=== PATIENT | female | born 1995 | race African-American/Black ===

== ENCOUNTER 2019-01-07 14:44 | Emergency (ER) | payer SELFPAY ==
[~2019-01-07] VITALS: Ht 144.8 cm; Wt 45.5 kg
[2019-01-07 15:09] VITALS: BP 107/59
[2019-01-07] MEDS ORDERED: ALBU8HFA IH (15:15)
== END 2019-01-07 17:07 | disposition left against medical advice (07) ==
LOC: EMS 14:46
DX: T78.40XA Allergy, unspecified, initial encounter (principal); Z53.21 Procedure and treatment not carried out due to patient leaving prior to being seen by health care provider

== ENCOUNTER 2019-01-08 12:12 | Emergency (ER) | payer SELFPAY ==
[~2019-01-08] VITALS: Ht 144.8 cm; Wt 45.5 kg
[~2019-01-08 12:12] MED LIST: ALBU8HFA IH
[2019-01-08] MEDS ORDERED: CefTRIAXone SODIUM 1 GM/VIAL IM ONE (14:15)
[2019-01-08] MEDS ORDERED: AZITHROMYCIN 250 MG TABLET PO ONE (14:15)
[2019-01-08] MEDS ORDERED: LIDOCAINE/PF 1% 2 ML VIAL IM ONE (14:15)
[2019-01-08 15:20] VITALS: BP 104/71
== END 2019-01-08 15:39 | disposition home or self-care (01) ==
LOC: EMS 12:13
DX: J45.909 Unspecified asthma, uncomplicated (principal); Z20.2 Contact with and (suspected) exposure to infections with a predominantly sexual mode of transmission; Z91.018 Allergy to other foods
CPT/HCPCS: 87491; 87591; 96372; 99283; J0696; J3490

== ENCOUNTER 2019-08-19 04:13 | Emergency (ER) | payer SELFPAY ==
[~2019-08-19] VITALS: Ht 144.8 cm; Wt 47.7 kg
[2019-08-19] MEDS ORDERED: ACETAMINOPHEN 500 MG TABLET PO ONE (05:00)
[2019-08-19] MEDS ORDERED: IBUPROFEN 600 MG TABLET PO ONE (05:00)
[2019-08-19 06:34] VITALS: BP 124/75
== END 2019-08-19 07:17 | disposition home or self-care (01) ==
LOC: EMS 04:13
DX: O9A.211 Injury, poisoning and certain other consequences of external causes complicating pregnancy, first trimester (principal); O99.511 Diseases of the respiratory system complicating pregnancy, first trimester; O26.891 Other specified pregnancy related conditions, first trimester; S13.4XXA Sprain of ligaments of cervical spine, initial encounter; S00.531A Contusion of lip, initial encounter; Z91.018 Allergy to other foods; Y08.89XA Assault by other specified means, initial encounter; Y93.89 Activity, other specified; Y92.89 Other specified places as the place of occurrence of the external cause; Y99.8 Other external cause status
CPT/HCPCS: 72040

== ENCOUNTER 2019-09-05 22:58 | Emergency (ER) | payer SELFPAY ==
[~2019-09-05] VITALS: Ht 144.8 cm; Wt 47.7 kg
[2019-09-05 23:46] LABS: BASOPHILS % (AUTO) 0.8 % (0.0-2.0); EOSINOPHILS % (AUTO) 2.5 % (1.0-6.0); HEMATOCRIT 35.9 % (36-46); HEMOGLOBIN 11.9 g/dL (12.0-16.0); LYMPHOCYTES # (AUTO) 2.1 K/uL (1.0-4.8); LYMPHOCYTES % (AUTO) 30.2 % (22.0-44.0); MEAN CORPUSCULAR HEMOGLOBIN 29.9 pg (26.0-34.0); MEAN CORPUSCULAR HGB CONC 33.1 G/dL (31.0-37.0); MEAN CORPUSCULAR VOLUME 90 fL (80-100); MONOCYTES # (AUTO) 0.3 K/uL (0.1-1.0); MONOCYTES % (AUTO) 4.8 % (2.0-9.0); NEUTROPHILS # (AUTO) 4.3 K/uL (1.8-7.7); NEUTROPHILS % (AUTO) 61.7 % (40.0-70.0); PLATELET COUNT (AUTO) 191 K/uL (150-450); RED BLOOD CELL COUNT(AUTO) 3.98 MIL/uL (4.00-5.20); RED CELL DISTRIBUTION WIDTH 14.7 % (11.5-14.5)
[2019-09-05 23:51] LABS: APPEARANCE,URINE CLOUDY (CLEAR); BILIRUBIN,URINE NEGATIVE (NEGATIVE); GLUCOSE, URINE (UA) NEGATIVE (NEGATIVE); KETONES,URINE NEGATIVE (NEGATIVE); LEUKOCYTE ESTERASE ,URINE SMALL (NEGATIVE); NITRATE,URINE NEGATIVE (NEGATIVE); OCCULT BLOOD,URINE LARGE (NEGATIVE); PROTEIN,URINE NEGATIVE (NEGATIVE)
[2019-09-06 00:01] LABS: AMORPHOUS SEDIMENT,UR Moderate /LPF (None Seen); BACTERIA,URINE Few /HPF (None Seen); SQUAMOUS EPITHELIAL CELL,UR Moderate /LPF (None Seen)
[2019-09-06 00:23] LABS: ANION GAP 12 mmol/L (8-16); CALCIUM, TOTAL 8.7 mg/dL (8.8-10.5); CARBON DIOXIDE 24 mmol/L (22-29); CHLORIDE 101 mmol/L (98-107); CREATININE 0.69 mg/dL (0.60-1.30); GLOMERULAR FILTR. RATE CALC > 60 mL/min (>60); GLUCOSE,RANDOM 88 mg/dL (70-110); POTASSIUM 3.5 mmol/L (3.5-5.1); SODIUM SERUM 137 mmol/L (136-145); UREA NITROGEN, BLOOD 14 mg/dL (7-18)
[2019-09-06 00:48] LABS: ALANINE AMINOTRANSFERASE 15 U/L (12-78); ALBUMIN 3.4 g/dL (3.4-5.0); ALKALINE PHOSPHATASE 41 U/L (46-116); ASPARTATE AMINOTRANSFERASE 14 U/L (15-37); BILIRUBIN,TOTAL 0.8 mg/dL (0.1-1.0); TOTAL PROTEIN, SERUM 7.3 g/dL (6.4-8.2)
[2019-09-06 01:28] LABS: HCG,QUANTITATIVE 127664 mIU/mL (0-6)
[2019-09-06 02:05] VITALS: BP 102/67
== END 2019-09-06 02:15 | disposition home or self-care (01) ==
LOC: EMS 22:59
DX: O20.0 Threatened abortion (principal); O30.001 Twin pregnancy, unspecified number of placenta and unspecified number of amniotic sacs, first trimester; J45.909 Unspecified asthma, uncomplicated; Z3A.01 Less than 8 weeks gestation of pregnancy; Z91.018 Allergy to other foods
CPT/HCPCS: 76817; 86850; 86900; 86901

== ENCOUNTER 2019-10-24 10:46 | Emergency (ER) | payer MEDICAID ==
[~2019-10-24] VITALS: Ht 149.9 cm; Wt 47.7 kg
[2019-10-24] MEDS ORDERED: 0.9% SODIUM CHLORIDE 5 ML NEB SOLUTION NEB ONE (11:38)
[2019-10-24] MEDS ORDERED: IPRATROPIUM BROMIDE 0.5 MG/2.5 ML NEB SOLUTION NEB ONE (11:45)
[2019-10-24] MEDS ORDERED: ALBUTEROL SULFATE 2.5 MG/0.5 ML NEB SOLUTION NEB ONE (11:45)
[2019-10-24] MEDS ORDERED: ALBUTEROL SULFATE HFA 90 MCG/PUFF 8 GM INHALER IH ONE (11:45)
[2019-10-24 12:15] VITALS: BP 122/67
== END 2019-10-24 12:31 | disposition home or self-care (01) ==
LOC: EMS 10:47
DX: O99.511 Diseases of the respiratory system complicating pregnancy, first trimester (principal); J45.909 Unspecified asthma, uncomplicated; Z3A.14 14 weeks gestation of pregnancy; Z91.018 Allergy to other foods
CPT/HCPCS: 94640; J3535

== ENCOUNTER 2019-11-20 10:08 | Emergency (ER) | payer MEDICAID ==
[~2019-11-20] VITALS: Ht 144.8 cm; Wt 50.0 kg
[2019-11-20] MEDS ORDERED: PREN1TAB80 PO (10:21)
[2019-11-20] MEDS ORDERED: PRENATAL VITAMINS PO (10:22)
[2019-11-20 13:01] LABS: BASOPHILS % (AUTO) 0.4 % (0.0-2.0); EOSINOPHILS % (AUTO) 1.7 % (1.0-6.0); LYMPHOCYTES # (AUTO) 1.9 K/uL (1.0-4.8); LYMPHOCYTES % (AUTO) 17.7 % (22.0-44.0); MEAN CORPUSCULAR HEMOGLOBIN 31.6 pg (26.0-34.0); MEAN CORPUSCULAR HGB CONC 34.7 G/dL (31.0-37.0); MEAN CORPUSCULAR VOLUME 91 fL (80-100); MONOCYTES # (AUTO) 0.6 K/uL (0.1-1.0); MONOCYTES % (AUTO) 5.3 % (2.0-9.0); NEUTROPHILS # (AUTO) 7.9 K/uL (1.8-7.7); NEUTROPHILS % (AUTO) 74.9 % (40.0-70.0); PLATELET COUNT (AUTO) 194 K/uL (150-450); RED BLOOD CELL COUNT(AUTO) 2.85 MIL/uL (4.00-5.20); RED CELL DISTRIBUTION WIDTH 14.5 % (11.5-14.5)
[2019-11-20 13:06] LABS: ANION GAP 9 mmol/L (8-16); CALCIUM, TOTAL 8.7 mg/dL (8.8-10.5); CARBON DIOXIDE 24 mmol/L (22-29); CHLORIDE 104 mmol/L (98-107); CREATININE 0.54 mg/dL (0.60-1.30); GLOMERULAR FILTR. RATE CALC > 60 mL/min (>60); GLUCOSE,RANDOM 74 mg/dL (70-110); POTASSIUM 3.8 mmol/L (3.5-5.1); SODIUM SERUM 137 mmol/L (136-145); UREA NITROGEN, BLOOD 9 mg/dL (7-18)
[2019-11-20 13:12] LABS: ALANINE AMINOTRANSFERASE 21 U/L (12-78); ALBUMIN 2.4 g/dL (3.4-5.0); ALKALINE PHOSPHATASE 55 U/L (46-116); ASPARTATE AMINOTRANSFERASE 18 U/L (15-37); BILIRUBIN,TOTAL 0.3 mg/dL (0.1-1.0); LIPASE 63 U/L (73-393); TOTAL PROTEIN, SERUM 6.3 g/dL (6.4-8.2)
[2019-11-20 14:06] LABS: APPEARANCE,URINE CLEAR (CLEAR); BILIRUBIN,URINE NEGATIVE (NEGATIVE); GLUCOSE, URINE (UA) NEGATIVE (NEGATIVE); KETONES,URINE NEGATIVE (NEGATIVE); LEUKOCYTE ESTERASE ,URINE SMALL (NEGATIVE); NITRATE,URINE NEGATIVE (NEGATIVE); OCCULT BLOOD,URINE NEGATIVE (NEGATIVE); PH,URINE 7.5 (5.0-8.0); PROTEIN,URINE NEGATIVE (NEGATIVE); UROBILINOGEN,URINE 0.2 mg/dL (<=1.0)
[2019-11-20 14:25] LABS: BACTERIA,URINE None Seen /HPF (None Seen); RBC,URINE None Seen /HPF (0-2); SQUAMOUS EPITHELIAL CELL,UR Few /LPF (None Seen)
[2019-11-20 15:52] VITALS: BP 123/71
== END 2019-11-20 15:59 | disposition home or self-care (01) ==
LOC: EMS 10:08
DX: O20.0 Threatened abortion (principal); O99.012 Anemia complicating pregnancy, second trimester; O26.892 Other specified pregnancy related conditions, second trimester; R10.30 Lower abdominal pain, unspecified; O99.512 Diseases of the respiratory system complicating pregnancy, second trimester; J45.909 Unspecified asthma, uncomplicated; Z91.018 Allergy to other foods; Z3A.15 15 weeks gestation of pregnancy
CPT/HCPCS: 76811; 76812